=== PATIENT | male | born 1970 | race Caucasian/White ===

== ENCOUNTER 2020-04-08 16:40 | Emergency (ER) | payer MEDICARE, MEDICAID, SELFPAY ==
--- NOTE | 2020-04-08 16:43 | ED.WOUNDLAC ---
HPI - Wound/Laceration General Chief Complaint: Wound/Laceration Stated Complaint: left thumb injury Time Seen by Provider: 04/08/20 16:43 Source: patient and RN notes reviewed History of Present Illness HPI narrative: Patient is a 49-year-old male who presents the urgent care with complaints of a laceration to the left arm. Patient states he was using a kitchen knife to open up [place] presents just 10 minutes prior to arrival. Patient is up-to-date on his tetanus shot. Denies of any care prior to his arrival for the laceration. No other acute complaints or injuries. No acute distress noted. Bleeding controlled prior to arrival. Patient aware of the plan of care. Some parts of this dictation were generated by voice recognition software and may contain typographical and/or grammatical inaccuracies. Related Data Home Medications Medication Instructions Recorded Confirmed No Home Medications 04/08/20 04/08/20 Allergies Allergy/AdvReac Type Severity Reaction Status Date / Time No Known Allergies Allergy Unverified 04/08/20 16:49 Review of Systems Review of Systems: Narrative: CONSTITUTIONAL: Denies fever, chills, or sweats. EYES: Denies visual changes, redness, or discharge. ENT: Denies rhinorrhea, congestion, sore throat, or otalgia. CARDIOVASCULAR: Denies chest pain, palpitations, or edema. RESPIRATORY: Denies cough or dyspnea. GASTROINTESTINAL: Denies abdominal pain, nausea, vomiting, or diarrhea. GENITOURINARY: Denies dysuria or hematuria. SKIN: Reports of a laceration to the tip of the left thumb MUSCULOSKELETAL: Denies back pain, joint pain, or myalgia. NEUROLOGIC: Denies headache, numbness, or weakness. All other systems reviewed are negative, except as documented in HPI. PMFSH Comments At the time of my signature, I reviewed and agree with the nursing past medical, surgical, social, and family history. There is no relevant family history pertinent to the patient complaint. Exam Narrative: Exam Narrative: GENERAL: This is a well-nourished, well-developed patient, in no apparent distress. HEAD: normocephalic, atraumatic. EYES: PERRL. Sclera clear/white. Vision is grossly intact. EARS: External ears normal NOSE: External nose normal with no obvious nasal discharge, nares without redness, no rhinorrhea. THROAT: Mucous membranes moist SKIN: 3 cm linear laceration to the distal tuft of the left thumb without affecting the nail/nail bed NEURO: awake, alert, and oriented to person, place and time. There were no obvious focal neurologic abnormalities. EXTREMITIES: Positive strong capillary refill to left upper extremity. Range of motion to left hand/all digits within normal limits. Positive strong left radial pulse. Course Vital Signs Vital signs: Vital Signs Temperature 99.4 F 04/08/20 16:45 Pulse Rate 86 04/08/20 16:45 Respiratory Rate 16 04/08/20 16:45 Blood Pressure 154/76 H 04/08/20 16:45 Pulse Oximetry 97 04/08/20 16:45 Temperature 99.4 F 04/08/20 16:45 Pulse Rate 86 04/08/20 16:45 Respiratory Rate 16 04/08/20 16:45 Blood Pressure 154/76 H 04/08/20 16:45 Pulse Oximetry 97 04/08/20 16:45 Reviewed-patient is informed that they may have pre-hypertension or hypertension based on a blood pressure reading in the department. I recommend the patient call the primary care provider listed on their discharge instructions or a physician of their choice this week to arrange follow-up for further evaluation of possible pre-hypertension or hypertension. Procedures Laceration Laceration 1: Site: hand (Left thumb) Side (If applicable): left Size (cm): 3 Description: linear Depth: simple, single layer Local Anesthetic: none Pre-repair: irrigated ([employer] normal saline) ====== Skin Level ====== Skin layer closed with: steri strips and other (ethilon) Size (cm): 5-0 Number of sutures: 5 ====== Subcutaneous
[2020-04-08 16:45] VITALS: BP 154/76; PULSE 86; RESP 16; TEMP 37.4; O2SAT 97
== END 2020-04-08 17:11 | disposition home or self-care (01) ==
PROVIDERS: Emergency Provider Nurse Practitioner Family; PCP Nurse Practitioner Family
DX: S61.012A Laceration without foreign body of left thumb without damage to nail, initial encounter (principal); W26.0XXA Contact with knife, initial encounter
CPT/HCPCS: 12002; 99212; G0463